=== PATIENT | male | born 1955 | race Two or more races ===

== ENCOUNTER 2016-10-31 17:25 | Inpatient (IN) | payer OTHER ==
[~2016-10-31] VITALS: Ht 162.6 cm; Wt 78.3 kg
[~2016-10-31 17:25] MED LIST changes: -HYDR-3240 PO; -RIVA15TA PO
[2016-10-31 18:33] LABS: ASPARTATE AMINO TRANSFERASE 20 U/L (15-37); BLOOD UREA NITROGEN 49 mg/dL (7-18)
[2016-10-31 18:38] LABS: IS PT STATUS REG ER OR PRE ER? YES
[2016-10-31] MEDS ORDERED: ASPIRIN 81 MG TABLET CHEW ONE (18:54)
[2016-10-31] MEDS ORDERED: ASPIRIN 81 MG TABLET CHEW PO ONE (19:00)
[2016-10-31] MEDS ORDERED: ACETAMINOPHEN 325 MG TABLET PO PRN (19:30)
[2016-10-31] MEDS ORDERED: POLYETHYLENE GLYCOL 17 GM PACKET PO PRN (19:30)
[2016-10-31] MEDS ORDERED: HEPARIN 5,000 UNITS/ML, 1ML IV ONE (19:30)
[2016-10-31] MEDS ORDERED: SODIUM CHLORIDE FLUSH 10ML SYR IVF PRN (19:30)
[2016-10-31] MEDS ORDERED: BISACODYL 10 MG SUPP PR PRN (19:30)
[2016-10-31] MEDS ORDERED: hydrALAzine 20 MG/ML, 1ML IV PRN (19:30)
[2016-10-31] MEDS ORDERED: HEPARIN 5,000 UNITS/ML, 1ML IV PRN (19:30)
[2016-10-31] MEDS ORDERED: HEPARIN 25,000 UNITS/500ML PMX 500 ML ONE (19:59)
[2016-10-31] MEDS ORDERED: HEPARIN 5,000 UNITS/ML, 1ML ONE (19:59)
[2016-10-31] MEDS ORDERED: SODIUM CHLORIDE 0.9% 1,000 ML IV SCH (20:00)
[2016-10-31] MEDS: HEPARIN 25,000 UNITS/500ML PMX 500 ML IV PRN (20:07)
[2016-10-31 20:24] LABS: IS PT STATUS REG ER OR PRE ER? YES
[2016-10-31 23:36] VITALS: BP 134/81
[2016-10-31 23:40] VITALS: BP 134/81
[2016-11-01 02:13] LABS: IS PT STATUS REG ER OR PRE ER? NO
[2016-11-01 02:51] VITALS: BP 122/79
[2016-11-01 06:24] VITALS: BP 127/80
[2016-11-01 09:02] LABS: ASPARTATE AMINO TRANSFERASE 14 U/L (15-37); BLOOD UREA NITROGEN 35 mg/dL (7-18)
[2016-11-01 12:51] VITALS: BP 120/72
[2016-11-01 19:27] VITALS: BP 145/96
[2016-11-01] MEDS: HEPARIN 25,000 UNITS/500ML PMX 500 ML IV PRN (21:29)
[2016-11-02 00:58] VITALS: BP 125/77
[2016-11-02 07:15] VITALS: BP 131/81
[2016-11-02 07:27] LABS: BLOOD UREA NITROGEN 30 mg/dL (7-18)
[2016-11-02] MEDS ORDERED: SODIUM CHLORIDE 0.9% 1,000 ML IV SCH (07:51)
[2016-11-02] MEDS ORDERED: CEFAZOLIN PMX 1GM/50ML 50 ML IVPB ONE (08:00)
[2016-11-02] MEDS ORDERED: MIDAZOLAM 1 MG/ML, 5ML ONE (10:29)
[2016-11-02] MEDS ORDERED: FENTANYL PF 100 MCG/2ML ONE (10:29)
[2016-11-02] MEDS ORDERED: LIDOCAINE 2%, 20ML ONE (10:30)
[2016-11-02] MEDS ORDERED: CEFAZOLIN 1,000 MG ONE (10:30)
[2016-11-02] MEDS ORDERED: CEFAZOLIN PMX 1GM/50ML 50 ML ONE (10:30)
[2016-11-02] MEDS ORDERED: ZOLPIDEM 5MG TABLET PO PRN (11:30)
[2016-11-02 12:57] VITALS: BP 136/91
[2016-11-02] MEDS ORDERED: RIVA15TA PO (17:03)
[2016-11-02] MEDS: CEFAZOLIN PMX 1GM/50ML 50 ML IVPB SCH (18:21)
[2016-11-02 19:18] VITALS: BP 138/91
[2016-11-02 19:56] VITALS: BP 150/73
[2016-11-03 01:40] VITALS: BP 138/89
[2016-11-03] MEDS: HYDROcodone/APAP 5/325 TABLET PO PRN ×2 (01:51→11:08)
[2016-11-03] MEDS: SODIUM CHLORIDE FLUSH 10ML SYR IVF SCH ×2 (01:52→09:00)
[2016-11-03] MEDS: CEFAZOLIN PMX 1GM/50ML 50 ML IVPB SCH (01:56)
[2016-11-03 06:55] LABS: BLOOD UREA NITROGEN 25 mg/dL (7-18)
[2016-11-03 07:06] VITALS: BP 135/87
[2016-11-03] MEDS ORDERED: METOPROLOL TARTRATE 50 MG TABLET PO SCH (08:30)
[2016-11-03] MEDS ORDERED: HYDR-3240 PO (08:35)
[2016-11-03] MEDS ORDERED: AMIODARONE 200 MG TABLET PO SCH (09:00)
== END 2016-11-03 12:30 | disposition home or self-care (01) | DRG 242 ==
LOC: SUATTDRO 19:15 → ED 19:54 → EDIP 20:00 → 5SO 23:13 → DCLOUNGE 11-03 12:08
PROVIDERS: ADMIT Internal Medicine; ATTEND Internal Medicine
PROC: 0JH606Z Insertion of Pacemaker, Dual Chamber into Chest Subcutaneous Tissue and Fascia, Open Approach (ICD-10-PCS; principal; 2016-10-31)
PROC: 02H63JZ Insertion of Pacemaker Lead into Right Atrium, Percutaneous Approach (ICD-10-PCS; 2016-10-31)
PROC: 02HK3JZ Insertion of Pacemaker Lead into Right Ventricle, Percutaneous Approach (ICD-10-PCS; 2016-10-31)
DX: I48.0 Paroxysmal atrial fibrillation (principal); N17.0 Acute kidney failure with tubular necrosis; D68.69 Other thrombophilia; I42.1 Obstructive hypertrophic cardiomyopathy; I12.9 Hypertensive chronic kidney disease with stage 1 through stage 4 chronic kidney disease, or unspecified chronic kidney disease; N18.3 Chronic kidney disease, stage 3 (moderate); Z79.01 Long term (current) use of anticoagulants; I48.2 Chronic atrial fibrillation; Z79.899 Other long term (current) drug therapy
CPT/HCPCS: 33208; 36415; 71010; 76770; 80048; 80053; 80061; 81003; 82436; 82570; 83880; 84133; 84300; 84443; 84484; 85025; 85520; 93005; 93306; 96361; 96374; 96375; C1779; C1785; C1892; J0690; J1644; J2250; J3010; J3490; J7030

== ENCOUNTER → 2016-10-31 | Outpatient (CLI) | payer OTHER ==
[~2016-10-31] MED LIST: AMIO200T42 PO; AMLO5TAB2 PO; HYDR-3240 PO; METO25TA35 PO; METO50TA82 PO; RIVA15TA PO; RIVA20TA PO
== END | disposition home or self-care (01) ==
LOC: RAD 12:15
PROVIDERS: ATTEND Nurse Practitioner Family
DX: R05 Cough (principal)
CPT/HCPCS: 71020

== ENCOUNTER → 2019-09-22 | Outpatient (CLI) | payer MEDICARE, OTHER ==
[~2019-09-22] MED LIST changes: +AMLO-150 PO; -AMLO5TAB2 PO; +HYDR-3240 PO; +RIVA15TA PO
== END | disposition home or self-care (01) ==
LOC: RAD 12:14
PROVIDERS: ATTEND Internal Medicine Cardiovascular Disease
DX: I11.9 Hypertensive heart disease without heart failure (principal); E78.5 Hyperlipidemia, unspecified; I42.2 Other hypertrophic cardiomyopathy; I48.91 Unspecified atrial fibrillation; I87.2 Venous insufficiency (chronic) (peripheral); R73.01 Impaired fasting glucose; Z95.0 Presence of cardiac pacemaker
CPT/HCPCS: 71046

== ENCOUNTER 2019-10-07 10:12 | Day surgery (SDC) | payer MEDICARE, OTHER ==
[~2019-10-07] VITALS: Ht 167.6 cm; Wt 75.0 kg
[2019-10-07 11:03] VITALS: BP 114/90
[2019-10-07] MEDS ORDERED: METO-99 PO (11:29)
[2019-10-07] MEDS ORDERED: FURO-92 PO (11:29)
[2019-10-07] MEDS ORDERED: AMIO200T42 PO (11:30)
[2019-10-07 11:47] LABS: BASOPHILS # (AUTO) 0.03 x10^3/uL (0-0.1); BASOPHILS % (AUTO) 1 % (0-1); EOSINOPHILS # (AUTO) 0.15 x10^3/uL (0-0.4); EOSINOPHILS % (AUTO) 3 % (1-7); LYMPHOCYTES % (AUTO) 28 % (22-44); MD NO; MEAN CORPUSCULAR HEMOGLOBIN 32.1 pg (27.5-34.5); MEAN CORPUSCULAR HGB CONC 33.5 g/dL (33.2-36.2); MEAN CORPUSCULAR VOLUME 95.8 fL (81-97); MEAN PLATELET VOLUME 9.4 fL (7.4-10.4); MONOCYTES # (AUTO) 0.34 x10^3/uL (0.2-0.8); MONOCYTES % (AUTO) 7 % (2-9); NEUTROPHILS # (AUTO) 3.29 x10^3/uL (1.8-6.8); NEUTROPHILS % (AUTO) 62 % (42-75); PLATELET COUNT 175 x10^3/uL (130-400); RED BLOOD COUNT 5.17 x10^6/uL (4.38-5.82); RED CELL DISTRIBUTION WIDTH 13.5 % (9.4-14.8)
[2019-10-07 11:56] LABS: ALANINE AMINOTRANSFERASE 38 U/L (12-78); ALBUMIN 3.5 g/dL (3.4-5.0); ANION GAP 6 mmol/L (5-15); CALCIUM 8.8 mg/dL (8.5-10.1); CHLORIDE 113 mmol/L (98-107); CREATININE 1.81 mg/dL (0.7-1.3)
[2019-10-07 11:58] LABS: ALKALINE PHOSPHATASE 80 U/L (45-117); BILIRUBIN,TOTAL 0.8 mg/dL (0.2-1.0); TOTAL PROTEIN 7.4 g/dL (6.4-8.2)
[2019-10-07] MEDS ORDERED: PROPOFOL 10 MG/ML, 20ML ONE (12:45)
== END 2019-10-07 14:14 | disposition home or self-care (01) ==
LOC: CACL 10:12
PROVIDERS: ATTEND Internal Medicine Cardiovascular Disease
DX: I48.91 Unspecified atrial fibrillation (principal); I42.2 Other hypertrophic cardiomyopathy; Z79.01 Long term (current) use of anticoagulants; Z79.899 Other long term (current) drug therapy; Z88.8 Allergy status to other drugs, medicaments and biological substances; Z95.0 Presence of cardiac pacemaker
CPT/HCPCS: 36415; 80053; 85025; 92960; J2704